=== PATIENT | female | born 1960 ===

== ENCOUNTER → 2025-02-16 14:25 | Outpatient (REF) | payer MEDICARE, SELFPAY | LOC: RAD 14:25 | PROVIDERS: ATTENDING PHYSICIAN Nurse Practitioner Acute Care | DX: M25.552 Pain in left hip (principal) | CPT/HCPCS: 73502 ==

== ENCOUNTER → 2025-03-02 17:46 | Outpatient (REF) | payer MEDICARE, SELFPAY | LOC: PAVMRI 17:46 | PROVIDERS: ATTENDING PHYSICIAN Nurse Practitioner Acute Care | DX: M25.552 Pain in left hip (principal) | CPT/HCPCS: 73721 ==